=== PATIENT | male | born 1980 | race Caucasian/White ===

== ENCOUNTER 2024-01-14 01:13 | Emergency (ER) | payer OTHER, SELFPAY ==
[2024-01-14 01:17] VITALS: BP 154/103
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
[2024-01-14 04:34] VITALS: BP 120/77
[2024-01-14] MEDS: TYLENOL 1000 MG PO (04:47)
[2024-01-14] MEDS: AUGMENTIN 875 MG/125 MG 1 TABLET PO (04:48)
[2024-01-14] MEDS: ADACEL 0.5 ML IM (04:57)
[2024-01-14 05:10] VITALS: BP 121/66
== END 2024-01-14 05:12 | disposition home or self-care (01) ==
LOC: EMR 01:13
PROVIDERS: EMERGENCY PHYSICIAN Emergency Medicine
DX: S01.511A Laceration without foreign body of lip, initial encounter (principal); S01.112A Laceration without foreign body of left eyelid and periocular area, initial encounter; S02.2XXA Fracture of nasal bones, initial encounter for closed fracture; F10.129 Alcohol abuse with intoxication, unspecified; S00.31XA Abrasion of nose, initial encounter; S00.211A Abrasion of right eyelid and periocular area, initial encounter; V17.0XXA Pedal cycle driver injured in collision with fixed or stationary object in nontraffic accident, initial encounter; Y93.55 Activity, bike riding; R03.0 Elevated blood-pressure reading, without diagnosis of hypertension; Z23 Encounter for immunization
CPT/HCPCS: 99284; 12013; 90471; 70450; 70486; 90715

== ENCOUNTER → 2024-05-21 11:46 | Outpatient (REF) | payer OTHER, SELFPAY | LOC: HWRAD 11:46 | PROVIDERS: ATTENDING PHYSICIAN Family Medicine | DX: M25.562 Pain in left knee (principal) | CPT/HCPCS: 73564 ==

== ENCOUNTER → 2024-05-28 07:28 | Outpatient (REF) | payer OTHER, SELFPAY | LOC: RCS 07:28 | PROVIDERS: ATTENDING PHYSICIAN Internal Medicine Cardiovascular Disease | DX: I45.6 Pre-excitation syndrome (principal); R00.2 Palpitations; R07.89 Other chest pain | CPT/HCPCS: 93306 ==

== ENCOUNTER → 2024-05-29 07:32 | Outpatient (REF) | payer OTHER, SELFPAY | LOC: RCS 07:32 | PROVIDERS: ATTENDING PHYSICIAN Internal Medicine Cardiovascular Disease; FAMILY PHYSICIAN Physician Assistant Medical | DX: I45.6 Pre-excitation syndrome (principal); R00.2 Palpitations; R07.89 Other chest pain | CPT/HCPCS: 93017 ==

== ENCOUNTER 2024-10-17 06:10 | Day surgery (SDC) | payer OTHER, SELFPAY ==
[2024-09-21 08:26] VITALS: BMI 25.2
[2024-09-21 09:32] LABS: Hematocrit 43.1 % (39.0-52.0); Hemoglobin 14.8 g/dL (13.0-18.0); Mean Corp Hgb Conc. 34.3 g/dL (33.0-37.0); Mean Corpuscular Volume 86.7 fL (80.0-94.0); Nucleated Red Blood Cells % 0 % (-); Platelet Count 138 10^3/uL (130-400); Red Cell Dist. Width 12.6 % (11.5-14.5)
[2024-09-21 09:52] LABS: ALT (SGPT) 20 U/L (0-50); AST (SGOT) 25 U/L (17-59); Albumin 4.5 g/dl (3.5-5.0); Alkaline Phosphatase 39 U/L (38-126); Blood Urea Nitrogen 18 mg/dl (9-20); Calcium 9.3 mg/dl (8.4-10.2); Carbon Dioxide 27 mmol/L (22-30); Chloride 106 mmol/L (98-107); Estimated Creatinine Clearance 104 ml/min; Glucose 90 mg/dl (70-99); Magnesium 2.1 mg/dl (1.6-2.3); Potassium 4.4 mmol/L (3.5-5.1); Sodium 139 mmol/L (135-145); Total Protein 7.3 g/dl (6.3-8.2); eGFR > 60.00
[2024-10-17] VITALS (17 sets, daily range): BP systolic 95–122; BP diastolic 52–86
--- NOTE | 2024-10-17 07:25 | ITS.CL.ABL ---
[employer] - Ablation
Ablation
Procedure Report:
Primary Physician: Dr Ronaldo Dominguez
Procedure Date: 10/17/2024
Procedure
Electrophysiology Study with SVT ablation
Left atrial recording / pacing
IV drug for arrhythmia induction
Transseptal
Intracardiac Ultrasound
Patient History
Patient is a pleasant 44-year-old male with a past medical history significant for manifest preexcitation and WPW syndrome.
Method
After informed consent was obtained, the patient was brought to the EP lab in a post-absorptive, non-sedated state. A peripheral IV was in place. Continuous electrocardiography, blood pressure and pulse oximetry monitoring was initiated and
cardioversion / defibrillator electrodes were positioned on the chest in an AP orientation. A 'time-out' was called. Conscious sedation was administered with the assistance of the anesthesia services, and local anesthesia was given at the femoral
vein access sites.
Using modified Seldinger technique, vascular access was achieved and sheaths were placed. Multipolar catheters were advanced to the coronary sinus, His bundle recording position, right ventricle. Following the determination of baseline conduction
intervals, comprehensive EP study was performed. Pacing and recording from the RV, HBE, and CS / LA was performed.
For arrhythmia details, see below.
Fluoroscopy time:
1.3 min; 2.63 mGy
Total RF time:
3 min 11s
Estimated Blood Loss
5 mL
Complications
None
At the end of the procedure, all catheters and sheaths were removed and hemostasis was assured with [id number] stitch for bilateral groins plus manual pressure. Protamine was given for reversal. The patient was returned to the recovery area
in stable condition.
Access Sites:
Left Femoral Vein: 3 sheaths (7 Fr, 6 Fr, 6 Fr)
Right Femoral Vein: 2 sheaths (9 Fr upsized to 11.5 Fr, 10 Fr)
Baseline Intervals:
Rhythm: Sinus rhythm with preexcitation
VT: 114 ms ms
AH: 90 ms
HV: 0 ms
QRS: 166 ms
QT: 436 ms
QTc: 466 ms
A-A: 815 ms
R-R: 815 ms
Post-Procedure Intervals:
VT: 161 ms
AH: 97 ms
HV: 47 ms
QRS: 115 ms
QT: 351 ms
QTc: 419 ms
A-A: 702 ms
R-R: 702 ms
AV Conduction:
- AVWB at 330 msec -at case completion
- VAWB at 490 msec�at case completion
Refractory Periods
- AERP: 600/270 ms
Procedure Synopsis:
The patient entered the room in sinus rhythm. Following femoral venous access, catheters were placed in position -- RV apex, his, and CS. Intracardiac ultrasound (ICE) was carefully advanced into the right atrium to guide sheath placement over a
J-wire, catheter placement, guide trans-septal puncture, identify potential complications, identify anatomic structures and ensure proper contact between ablation catheter and tissue. With initial pacing maneuvers, patient was noted to have brief
nonsustained atrial fibrillation with loss of preexcitation however preexcitation returned when in sinus rhythm. With initial V pacing for threshold testing, patient entered into a narrow complex long RP tachycardia with eccentric activation with a
tachycardia cycle length (throughout the case) of 370 to 400 ms. Distal CS appeared to be earliest atrial activation. Tachycardia was terminated with ventricular pacing however reinitiated with atrial testing without significant provocation.
Given patient's surface ECG demonstrating manifest preexcitation and a likely left lateral position with sustained tachycardia, decision was made for transseptal.Heparin was given prior to trans-septal puncture. Heparin was given to achieve and
maintain a target ACT of 300-400 seconds throughout the procedure. Trans-septal access was performed under ICE guidance. The trans-septal puncture was performed with a SafeSept wire through a [place]rough needle assembly through the steerable
sheath. The wire was visualized as it entered the LSPV and system advanced under ICE guidance and fluoroscopy into the LA. The Brock[place]brough needle assembly, SafeSept wire and sheath dilator were removed under negative pressure. LA pressure was
measured and recorded. Assembly was removed and the HD advisor grid was advanced into the left atrium. Electroanatomic mapping was then performed while patient in sinus rhythm, SVT, and ventricular pacing. Earliest activation in site of noted at
the left lateral wall near mitral annulus. Advisor HD grid was removed from the left atrium and TactiFlex D/F SE irrigated catheter was advanced in the left atrium. 40 W power was used for RFA. Careful monitoring of temperature, impedance, time
and rhythm were noted during ablation. Patient placed back into SVT and earliest site of activation (a on V) with ablation distal was noted as well as area previously noted by electroanatomic mapping for earliest activation of the atrium or
ventricle. RFA was delivered with single bur and termination of the SVT. Consolidation lesions were provided in the area as mapped by electroanatomic mapping with again careful monitoring of parameters. Following the waiting period, testing was
once more performed and SVT was not inducible. No other arrhythmias were inducible. With ventricular pacing, ablation catheter in the left atrium was noted to be later activation when compared to right atrial activation. Atrial activation was
also noted to be concentric compared to previously eccentric activation. Measurements were performed electrophysiology study performed once more again without induction of arrhythmias. Catheter and sheath were removed from the left atrium and
post-ablation intracardiac echo evaluation was consistent with pre-ablation with no changes and no pericardial effusion and there is no left atrial thrombus or left ventricle thrombus seen. Electrophysiology study was performed. Hemostasis was
obtained with figure of 8 stitch for each groin and with manual pressure. Protamine was used for reversal.
Recommendations
- If patient stable and meeting clinical metrics, anticipate discharge home today
- Bedrest with straight-leg precautions 4 hours
- Aspirin 81 mg daily for 30 days
� Follow-up in office in 3 months or sooner as needed
� Follow-up with primary care as scheduled
Michael Yoder DO, FAC, [facility]
Clinical Cardiac Electrophysiology
cc: Dr Ronaldo Dominguez
[2024-10-17 09:30] LABS: ACT-LR - POC 240 Seconds (116-155)
[2024-10-17 09:44] LABS: ACT-LR - POC 322 Seconds (116-155)
[2024-10-17 10:01] LABS: ACT-LR - POC 353 Seconds (116-155)
[2024-10-17 10:17] LABS: ACT-LR - POC 324 Seconds (116-155)
[2024-10-17 10:22] LABS: ACT-LR - POC 144 Seconds (116-155)
[2024-10-17] MEDS: ZOFRAN 4 MG IV (11:08)
== END 2024-10-17 15:30 | disposition home or self-care (01) ==
LOC: CATH 06:10
PROVIDERS: ATTENDING PHYSICIAN Internal Medicine Cardiovascular Disease; FAMILY PHYSICIAN Physician Assistant Medical
DX: I45.6 Pre-excitation syndrome (principal); R00.2 Palpitations; R55 Syncope and collapse; R42 Dizziness and giddiness; R53.83 Other fatigue
CPT/HCPCS: 93662; C1894; C1732; C1730; C1766; C1892; 36415; 80053; 83735; 85025; 85347; 93005; 93462; 93623; 93653